=== PATIENT | male | born 1975 | race Caucasian/White ===

== ENCOUNTER 2016-06-14 22:30 | Emergency (ER) | payer OTHER | END 2016-06-14 23:27 | disposition home or self-care (01) | LOC: FER 22:30 | DX: S16.1XXA Strain of muscle, fascia and tendon at neck level, initial encounter (principal); M54.5 Low back pain; Z88.1 Allergy status to other antibiotic agents; V49.40XA Driver injured in collision with unspecified motor vehicles in traffic accident, initial encounter; Y92.410 Unspecified street and highway as the place of occurrence of the external cause | CPT/HCPCS: J1885 ==

== ENCOUNTER 2021-09-06 20:48 | Emergency (ER) | payer OTHER, MEDICARE ==
[~2021-09-06 20:48] MED LIST: NAPROXEN500 MG PO; PREDNISONE 20MG20 MG PO; SKELAXIN800 MG PO
[2021-09-07 00:08] LABS: BASOPHIL 0.9 % (0-2); EOSINOPHIL 13.5 % (0-5); HCT 49.9 % (42.0-52.0); HGB 16.4 g/dl (13.2-18.0); LYMPHOCYTE 31.7 % (15-48); MCH 29.5 pg (25.0-31.0); MCHC 32.9 g/dL (32.0-36.0); MCV 89.9 fL (78.0-100.0); MONOCYTE 7.3 % (0-12); MPV 10.6 fL (6.0-9.5); NRBC 0; PLT 213 K/uL (150-400); RBC 5.55 M/uL (4.70-6.00); RDW 12.1 % (11.5-14.0); WBC 11.7 K/uL (4.0-10.5)
[2021-09-07 00:29] LABS: ALBUMIN 3.9 g/dL (3.4-5.0); BILIRUBIN - TOTAL 0.2 mg/dL (0.2-1.0); BUN/CREAT RATIO (CALC) 8.6 RATIO; CREATININE 1.28 mg/dL (0.67-1.17); GLOBULIN (CALCULATION) 3.6 g/dL; TOTAL PROTEIN 7.5 g/dL (6.4-8.2)
[2021-09-07] MEDS ORDERED: NORCO 5-325 TA1 EACH PO (05:29)
== END 2021-09-07 05:45 | disposition home or self-care (01) ==
LOC: FER 20:48
PROVIDERS: Emergency Medicine
DX: M54.6 Pain in thoracic spine (principal); M54.50 Low back pain, unspecified; F17.200 Nicotine dependence, unspecified, uncomplicated; Z28.310 Unvaccinated for COVID-19
CPT/HCPCS: 36415; 71275; 72125; 72128; 72131; 80053; 84484; 85025; 85379; 93005; J1170; J2270; J2930; J7030; Q9967